=== PATIENT | female | born 1955 | race Caucasian/White ===

== ENCOUNTER 2023-04-17 15:47 | Outpatient (RCR) | payer MEDICARE, MEDICAID, SELFPAY ==
--- NOTE | 2023-04-21 07:25 | OPREHPOC ---
Outpatient Therapy Plan of Care This is a Multidisciplinary Plan of Care that may contain components documented by all disciplines (PT, OT, and ST.) PT Problem 1 PT Problem #1 Knowledge Deficit PT Goal 1 Goal Patient to demonstrate independence with HEP Target Visit 6 PT Problem 2 PT Problem #2 Pain PT Goal 1 Goal 1. Patient to report highest pain at 2/10 Target Visit 12 PT Problem 3 PT Problem #3 Impaired Range of Motion PT Goal 1 Goal Patient to demonstrate 10 deg of B ankle DF to return to stair navigation at PLOF Target Visit 12 PT Problem 4 PT Problem #4 Impaired Strength PT Goal 1 Goal Patient to demonstrate 5/5 strength of B ankle to improve ability to ambulate prolonged distances to complete grocery shopping Target Visit 12 PT Problem 5 PT Problem #5 Impaired Functional Mobil PT Goal 1 Goal 1. Patient to score 20% improvement on LEFS 2. Patient report ability to complete house hold cooking and cleaning with no increase in pain Target Visit 12
--- NOTE | 2023-04-21 07:26 | BUPTOPEVAL1 ---
Assessment and note entered by Aditi Mayo DPT Evaluation Information Assessment Status Evaluation Diagnosis B heel pain Subjective Information Patient reports that she is having B heel pain R greater than L. She reports she had a cortisone injection at the R heel last week and has not noticed a change. She reports pain is worse with walking and standing. She reports pain varies throughout the day. She reports her professor of psychology told her to wear Crocs. She reports the MD thought she might have plantar fascitis. She reports she is retired. Reported Pain Level Pain Score 0,0: Self Report Assessment PT Clinical Summary Patient is a 67 year old female who presents to PT with B foot pain R>L. She demonstrates decreased B ankle ROM, decreased B ankle strength, tenderness to R plantar fascia and impaired gait indicating possible plantar fasciitis. Patient has difficulty with walking and stanidng for house hold tasks such as cooking and cleaning. She would benefit from skilled PT to address impairments and return to PLOF. Plan of Care Interventions Electrical Stimulation,Gait Training,Hot Pack/Cold Pack,Manual Therapy,Mechanical Traction,Neuro Re- education,Patient/Caregiver Educati,Therapeutic Activities,Therapeutic Exercise PT Services Indicated Yes Treatment Frequency and 2x weekly for 12 visits Duration These treatments will address the objective and functional deficits as defined above. The patient will be advanced safely and appropriately in order for the patient to progress towards his/her prior level of function. Additional exercises will be introduced and as well as a comprehensive home exercise program upon discharge, if needed, ?to ensure carryover of functional gains achieved in the clinic. This treatment plan has been reviewed and agreement upon by the patient.
--- NOTE | 2023-08-14 11:40 | PCPTNOTE ---
patient discharged due to absence from PT for length of time
== END 2023-05-13 23:59 | disposition home or self-care (01) ==
LOC: CHSPT 15:47
PROVIDERS: PCP Family Medicine
DX: M79.671 Pain in right foot (principal)
CPT/HCPCS: 97110; 97140; 97161